=== PATIENT | female | born 1965 | race African-American/Black ===

== ENCOUNTER 2024-02-18 08:07 | Emergency (ER) | payer SELFPAY ==
[2024-02-18 08:45] LABS: #Basophils 0.03 10x3/uL (0.0-0.2); %Basophils 0.5 % (0.0-1.0); %Eosinophils 2.5 % (0.0-10.0); %Lymphocytes 36.3 % (21.0-51.0); %Monocytes 7.7 % (0.0-10.0); %Neutrophils 52.7 % (42.0-75.0); Hematocrit 37.8 % (36.0-47.0); Mean Corpuscular HGB CONC 31.7 g/dL (32.0-36.0); Mean Corpuscular Hemoglobin 28.9 pg (27.0-31.0); Mean Corpuscular Volume 91.1 fL (78.0-98.0); Platelet Count 208 10x3/uL (130-400); RBC Distribution Width 15.9 % (11.5-14.5); Red Blood Cell (RBC) Count 4.15 mill/uL (4.20-5.40)
[2024-02-18] MEDS ORDERED: Metoclopramide HCl 10 MG (2 mL) VIAL ONE (08:45)
[2024-02-18] MEDS ORDERED: diphenhydrAMINE 50 MG/ML VIAL ONE (08:45)
[2024-02-18 09:04] LABS: ALT (SGPT) 16 U/L (8-55); AST (SGOT) 15 U/L (5-34); Albumin 3.8 g/dL (3.5-5.0); Alkaline Phosphatase 95 U/L (40-110); Anion Gap 13 mmol/L (10-20); BUN (Urea Nitrogen) 17 mg/dL (9.8-20.1); Bilirubin, Total 0.2 mg/dL (0.2-1.2); Calc. Creatinine Clearance 0 mL/min (70-130); Calcium 9.2 mg/dL (7.8-10.44); Carbon Dioxide 20 mmol/L (22-29); Chloride 109 mmol/L (98-107); Estimated GFR 93; Globulin 3.7 g/dL (2.4-3.5); Glucose 98 mg/dL (70-105); Potassium 4.2 mmol/L (3.5-5.1); Protein, Total 7.5 g/dL (6.0-8.3); Sodium 138 mmol/L (136-145)
[2024-02-18 09:10] LABS: Troponin I Less than 0.010 ng/mL (< 0.028)
== END 2024-02-18 12:06 | disposition home or self-care (01) ==
LOC: ERS 08:07 → EDBD 08:07 → ERS 12:06
DX: R51.9 Headache, unspecified (principal); R29.700 NIHSS score 0; R44.1 Visual hallucinations; G25.71 Drug induced akathisia; I10 Essential (primary) hypertension; Z55.0 Illiteracy and low-level literacy
CPT/HCPCS: 80053; 84484; 85025; 93005; 96374; 96375; J1200; J2765